=== PATIENT | male | born 1955 | race Caucasian/White ===

== ENCOUNTER 2023-11-05 05:07 | Observation (INO) ==
--- NOTE | 2023-10-06 16:19 | PAT Medication Instructions ---
Medication Instructions Date of Service October 06, 2023 Home Medications amlodipine 10 mg tablet 10 mg PO QAM labetalol 100 mg tablet 100 mg PO BID losartan 100 mg tablet 100 mg PO QAM chlorthalidone 25 mg tablet 25 mg PO QAM DO NOT take the morning of surgery losartan 100 mg tablet 100 mg PO QAM chlorthalidone 25 mg tablet 25 mg PO QAM Take morning of surgery With a small sip of water, OTHERWISE NOTHING TO EAT OR DRINK AFTER MIDNIGHT: amlodipine 10 mg tablet 10 mg PO QAM labetalol 100 mg tablet 100 mg PO BID Take evening before surgery labetalol 100 mg tablet 100 mg PO BID Other Notes If you have any questions please call us at [phone] or [phone] or [phone] or [phone]
--- NOTE | 2023-10-27 11:26 | Anesthesiology Consultation ---
Date of Service October 27, 2023 Assessment & Plan (1) Encounter for pre-operative examination: - awaiting copy of 09/2023 CBC with diff from surgeon's office. - hypokalemia: 2.9-Gilma nurse with PCP office made aware and states she will notify provider today for further review/management. Patient will ultimately need a medical clearance as well. PAT testing to be faxed to PCP. Surgeon's office made aware. - awaiting stress test, holter monitor, and echocardiogram ordered by cardiology. Surgeon's office made aware. - cardiology clearance 10/07/23: "...low to intermediate cardiac risk..." - cardiology office visit 10/06/23: "...requires clearance for left shoulder replacement on March 19, 2023. Reports some palpitations with issues with elevated BP readings; will proceed with regular stress testing to evaluate...Holter monitor scheduled for palpitations and fatigue. Echocardiogram scheduled for murmur...will refer to pulmonary for evaluation for diagnostic sleep study with moderate CHARBEL and lowest oxygen saturation of 72%. Discussed importance of CHARBEL treatment. Renal ultrasound scheduled for uncontrolled hypertension taking 4 medications without control...will add Terazosin 2 mg daily at night for BP control; using clonidine only as needed..." - Outpatient joint assessment: Patient is currently scheduled for inpatient pathway. If re-evaluated and patient/surgeon requests outpatient pathway, patient is not acceptable candidate for outpatient joint program from anesthesia standpoint. Chart Review Chart Review: Pending: Refer to Additional Notes / Consult section and Patient seen in Pre Admission Testing Teaching & Discussion Pre-Anesthesia Teaching/Discussion Notes: Instructed NPO after midnight before surgery, except medications with 15 cc of water. Medication instructions provided according to the PAT guidelines. History Surgery Operation Date: 11/05/23 07:00 Proposed Procedures p Left Total Shoulder Arthroplasty - Navjot Perez MD Height/Weight Height: 5 ft 7 in Weight: 96.2 kg Allergies Allergy/AdvReac Type Severity Reaction Status Date / Time No Known Allergies Allergy Verified 10/02/23 08:16 Medications Home Medications Medication Instructions Recorded Confirmed Last Taken amlodipine 10 mg tablet 10 mg PO QAM 02/10/23 10/02/23 Unknown labetalol 100 mg tablet 100 mg PO BID 02/10/23 10/02/23 Unknown losartan 100 mg tablet 100 mg PO QAM 02/10/23 10/02/23 Unknown chlorthalidone 25 mg tablet 25 mg PO QAM 10/02/23 10/02/23 Unknown Past Medical History Medical History COPD (chronic obstructive pulmonary disease) "Mild" - no inhalers Fatty liver History of COVID-19 08/2021- cough, fatigue > resolved HTN (hypertension) following with [facility] Sleep apnea cpap at night Patient denies h/o stroke, seizures, heart attack, heart failure, DM, blood clots/DVTs or blood transfusions. 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 work accident) Hx of arthroscopy of shoulder left Hx of cholecystectomy Hx of colonoscopy Hx of inguinal hernia repair left Past Anesthesia History No Hx of Anesthesia Complications and No Family Hx of Anesthesia Complications History of PONV No Hx of PONV and No Hx of Motion Sickness Social History Smoking Status: Former smoker tobacco type: cigarettes Do You Dip or Chew Tobacco: No Smoking End Date: 1994 Hx Alcohol Use: Yes Alcohol type: beer alcohol intake frequency: a few times a month Hx Substance Use: No substance use type: does not use Review of Systems Patient denies chest pain, shortness of breath, dyspnea on exertion, reflux, fever, chills, cough, wheezing, or palpitations. Physical Exam Vital Signs Vitals BP 166/80 P 73 TEMP 98.4 SP02 98% on RA RESP 18 Physical Patient resting comfortably in chair in no acute distress, alert and oriented, responding appropriately throughout visit Full cervical extension range of motion without pain TMD 3.5 finger breadths Mallampati Score 2 Dentition: edentulous, full upper and lower dentures Lungs: normal respiratory effort. Good air movement, clear throughout to auscultation, no adventitious breath sounds Cardiac: regular rate and rhythm, no murmurs noted Carotid arteries: negative bruit bilat Lab Results Anesthesia Preop Results Results Anesthesia Widget: Na 139 mmol/L (136-145) 10/27/23 K 2.9 mmol/L (3.5-5.1) L 10/27/23 Cl 101 mmol/L (98-107) 10/27/23 CO2 27 mmol/L (21-32) 10/27/23 BUN 22 mg/dl (6-23) 10/27/23 Creat 1.05 mg/dl (0.6-1.4) 10/27/23 Glucose Level 110 mg/dl (70-99(Fasting)) H 10/27/23 PT 11.4 Seconds (9.0-12.0) 10/27/23 PTT 29 Seconds (21-31) 10/27/23 INR 1.0 (0.9-1.1) 10/27/23 Urine Color Yellow 10/27/23 Urine Appearance Clear (Clear) 10/27/23 Urine pH 7.5 (4.5-7.5) 10/27/23 Urine Specific Labadie 1.014 (1.000-1.030) 10/27/23 Urine Protein Negative (Negative) 10/27/23 Urine Glucose (UA) Negative (Negative) 10/27/23 Urine Ketones Negative (Negative) 10/27/23 Urine Blood Negative (Negative) 10/27/23 Urine Nitrite Negative (Negative) 10/27/23 Urine Bilirubin Negative (Negative) 10/27/23 Urine Urobilinogen Negative (Negative) 10/27/23 Urine Leukocyte Esterase Negative (Negative) 10/27/23 Blood Type O Positive 10/27/23 Antibody Screen NEGATIVE 10/27/23 Testing Electrocardiogram Date: 02/20/23 NSR, rate 67 bpm Chest X-Ray Date: 02/20/23 No acute process.
[2023-11-05] MEDS: LR 60ML/HR IV SCH (05:59)
[2023-11-05] MEDS: LR 15ML/HR IV SCH (05:59)
[2023-11-05] MEDS ORDERED: ceFAZolin 3000MG 3,000 MG/72.5 ML BAG IV SCH (06:00)
[2023-11-05] MEDS ORDERED: BUPIVACAINE 0.5 % 5 MG/1 ML PF 10ML VIAL ONE (06:16)
--- NOTE | 2023-11-05 06:27 | History & Physical Bridge Note ---
Date of Service November 05, 2023 History & Physical Bridge Note I have examined the patient, reviewed the History & Physical and in the interval since the performance of the History & Physical I have noted the following changes of clinical significance: no changes noted
[2023-11-05] MEDS ORDERED: ONDANSETRON INJ 2 MG/ML 2 ML VIAL ONE (06:32)
[2023-11-05] MEDS ORDERED: MIDAZOLAM HCL 1 MG/ML 2ML VIAL ONE (06:32)
[2023-11-05] MEDS ORDERED: fentaNYL citrate PF 100 MCG/2 ML VIAL ONE (06:32)
[2023-11-05] MEDS ORDERED: LIDOCAINE 2% 2 ML VIAL/AMP(20MG/ML) INFIL ONE (06:32)
[2023-11-05] MEDS ORDERED: PROPOFOL IV EMULSION 10 MG/ML 20 ML VIAL IV ONE (06:32)
[2023-11-05] MEDS ORDERED: DEXAMETHASONE SOD INJ 4 MG/ML VIAL ONE (06:32)
[2023-11-05] MEDS ORDERED: ATROPINE SULFATE 0.1 MG/ML 10ML SYR IV PRN (06:33)
[2023-11-05] MEDS ORDERED: ONDANSETRON INJ 2 MG/ML 2 ML VIAL IV PRN ×2 (06:33→10:57)
[2023-11-05] MEDS ORDERED: ePHEDrine sulfate 50 MG/ML AMP IV PRN (06:33)
[2023-11-05] MEDS ORDERED: ROCURONIUM BROMIDE 10 MG/ML 5 ML VIAL IV ONE (06:34)
[2023-11-05] MEDS: TRANEXAMIC ACID 1,000 MG **IV Pre-op IV SCH (06:42)
[2023-11-05] MEDS: ceFAZolin 2000MG 2,000 MG/15 ML SYR IV SCH ×2 (06:56→15:41)
[2023-11-05] MEDS ORDERED: GLYCOPYRROLATE 0.2 MG/ML VIAL ONE (07:32)
[2023-11-05] MEDS ORDERED: PHENYLEPHRINE 100MCG/ML 10ML SYR IV ONE (07:32)
[2023-11-05] MEDS ORDERED: ePHEDrine sulfate 50 MG/5 ML SYR ONE ×2 (07:32→08:09)
[2023-11-05] MEDS: THROMBIN FOR SOLN 20000 UNIT KIT ONE (08:30)
[2023-11-05] MEDS: TRANEXAMIC ACID 1,000 MG **IV Intra-op IV SCH (09:00)
[2023-11-05] MEDS ORDERED: SUGAMMADEX SODIUM 200 MG/2 ML VIAL IV ONE (09:04)
--- NOTE | 2023-11-05 09:36 | Post Operative Brief Note ---
Immediate Post Op Note v1 Date of Surgery November 05, 2023 Pre & Post Diagnosis Operation Date: 11/05/23 07:00 Pre-Op Diagnosis: Left Shoulder Osteoarthritis Post-Op Diagnosis: Left Shoulder Osteoarthritis I identified the patient and participated in the time-out.: Yes Procedure Operation Date: 11/05/23 07:00 Actual Procedures p Left Total Shoulder Arthroplasty, Cemented(Left) - Navjot Perez MD Surgeon Navjot Perez MD Solar Power Installer Psychiatricmilena Estimated Blood Loss 100 Findings Consistent with Post-Op Diagnosis Severe osteoarthritis with marked osteophytes inferior humeral neck inferior glenoid aberrant anatomy based on previous surgery complex case modifier 22 applies. Thin but intact posterior rotator cuff and superior rotator cuff Fluids See anesthesia report Complications None
--- NOTE | 2023-11-05 09:41 | Operative Report ---
Post Operative Report Pre & Post Diagnosis Operation Date: 11/05/23 07:00 Pre-Op Diagnosis: Left Shoulder Osteoarthritis Post-Op Diagnosis: Left Shoulder Osteoarthritis I identified the patient and participated in the time-out.: Yes Procedure Operation Date: 11/05/23 07:00 Actual Procedures p Left Total Shoulder Arthroplasty, Cemented(Left) - Navjot Perez MD Surgeon JESSICA Perez MD Feather Mixer Travis KRAUS Estimated Blood Loss 100 Findings Consistent with Post-Op Diagnosis see operative report Specimens see operative report Drains none Complications none Disposition Accompanied Patient To Recovery: Yes Indications This 68 year old male presented to the office with complaints of persisting left shoulder pain that has been ongoing for years. He has tried conservative care measures without lasting improvement. He elected to proceed with surgical intervention in hopes of improving his pain and function. Preoperative imaging has been obtained. Description of Procedure The patient was administered a regional block and then taken to the operating room where he was given general anesthesia. He was prepped and draped in the usual sterile fashion. Please see Dr. Perez's operative report for specifics of the procedure. I was present for the entire case from initial patient positioning through final closure. Assistance was provided in tissue retraction, hemostasis, trial implant placement, final implant placement, and final wound closure. The patient was taken to the recovery room in satisfactory condition. I attest to the content of the Intraoperative Record and any orders documented therein. Any exceptions are noted below.
--- NOTE | 2023-11-05 09:43 | Operative Report ---
Post Operative Report Pre & Post Diagnosis Operation Date: 11/05/23 07:00 Pre-Op Diagnosis: Left Shoulder Osteoarthritis Post-Op Diagnosis: Left Shoulder Osteoarthritis I identified the patient and participated in the time-out.: Yes Procedure Operation Date: 11/05/23 07:00 Actual Procedures p Left Total Shoulder Arthroplasty, Cemented(Left) - Navjot Perez MD Surgeon Navjot Perez MD Junior Art Director Travis Estimated Blood Loss 100 Findings Consistent with Post-Op Diagnosis Severe osteoarthritis with marked osteophytes off the inferior glenoid and the inferior humeral neck extending anteriorly and posteriorly marked deformation of anatomy previous surgery with marked scarring anteriorly sutures in place throughout the entire anterior exposure of poor tissue planes. Fluids See anesthesia report Specimens None Drains None Complications None Indications Severe pain with marked osteoarthritis and severe deformity left glenohumeral joint. Description of Procedure After the patient was appropriate notified site verify consent provide antibiotics confirmed as being given the arm was prepped and draped use routine fashion. He had marked stiffness he could not internally and actually rotate more than from the belly to -5. Forward flexion was to about 70. Previous incision was utilized and extended slightly proximally. There was marked scarring full-thickness flaps raised. Deltopectoral interval was followed and entered there was no cephalic vein probably removed with previous procedure. The clavipectoral fascia was all scarred it was released as best as possible and then retractor placed subscapularis was then peeled off from the glide of the pectoral fascia and then was released from its most lateral aspect from the biceps groove the biceps was released it was not tenodesed based on previous scarring. Full-thickness flap of the subscapularis was then made and then tedious dissection carried all around the anterior humeral neck and the inferior humeral neck as well as the anterior and inferior glenoid. There was marked osteophytes multiple loose bodies in the joint these were all tediously dissected off the inferior glenoid neck the inferior and anterior glenoid and off the inferior humeral neck. Some these osteophytes were huge and the anatomy was clearly aberrant and could not be expected to be in appropriate positioning so work was performed off the internal side of the capsule and off the edge of the bone to protect the nerves as much as possible. No point in time was a nerve visualized. Once this was done excellent exposure was obtained when humeral neck was cut. Seating hole was then made in the center appropriate reaming carried out. Triphalangeal holes were then placed. The trial fit well. This was then irrigated and then thrombin placed. It was then cemented in the smaller holes in press-fit into the central hole excellent fixation was obtained. After 12 minutes area was then irrigated the some minor revision osteophytes were resected. The wound was irrigated with Betadine. Humerus was then flexed and rotated into the wound and serial broaching and reaming carried up to a size 12 stem with a 135 degree x 12 body. Trial reduction was carried out with a 21 and an 18 head and 21 gave us a little bit more stability posteriorly so it was elected to use that. Sitting always were then placed once the trial limits were removed for the repair of the subscap this had 2 holes with double #2 FiberWire. Wound was irrigated and then the sutures after being placed were then centered so that the stem would the lateral to the sutures providing extra fixation. Once that was done the implant was then impacted into position appropriate anteversion and 30 degrees. Permanent head was then seated in the shoulder reduced. Everything looked good. Rotator interval was then closed with Vicryl to the superior subscap. The subscap was repaired back to the humerus with the sutures that were drilled through the holes and an additional juggernaut 2.9 in size double loaded. This gave excellent fixation to the subscapularis. Rotator interval was closed as noted. Everything looked good. Shoulder could be AB ducted the 30 to 40 degrees then rotated from belly to about 10 degrees with no issues. Forward flexion easily to a 50 to 60 degrees. Wound was irrigated 1 final time and closed with 2-0 plain for the deep and superficial layers and stainless to clips for skin appropriate dressing applied the patient transferred recovery in satisfactory addition he tolerated the procedure well. Summary of implants Global shoulder anchor. Glenoid Premier X-linked PE 52 glenoid size 12 send stem size 12 x 35 degree body 52 x 21 eccentric metal head. EBL 100 cc or less crystalloid per anesthesia no DVT prophylaxis required other than aspirin baby aspirin daily. Family contacted. I attest to the content of the Intraoperative Record and any orders documented therein. Any exceptions are noted below.
[2023-11-05] MEDS: fentaNYL citrate PF 100 MCG/2 ML VIAL IV PRN (09:53)
--- NOTE | 2023-11-05 09:55 | XRay Report ---
SINGLE VIEW LEFT SHOULDER CLINICAL HISTORY: Postoperative examination. FINDINGS: An AP portable view of the left shoulder is compared to study dated 10/27/2023. The skeletal structures are osteopenic. A left shoulder arthroplasty is in near anatomic alignment. No acute frac ture is seen. Productive degenerative change is noted at the acromioclavicular joint. Skin clips, sub cutaneous gas, and soft tissue swelling overlying the left shoulder are expected postsurgical changes . The imaged left lung parenchyma appears clear. IMPRESSION: Expected postoperative findings status post left shoulder orthoplasty. No acute fracture is seen. Electronically signed by: Sawyer King M.D. 11/05/2023 9:53 AM
[2023-11-05] MEDS ORDERED: LORazepam 0.5 MG TAB PO PRN (10:57)
[2023-11-05] MEDS ORDERED: MAGNESIUM HYDROXIDE SUSP 30 ML UDC PO PRN (10:57)
[2023-11-05] MEDS ORDERED: HYDROmorphone INJ 0.5 MG/0.5 ML SYR IV PRN (10:57)
[2023-11-05] MEDS ORDERED: NALOXONE HCL 0.4 MG/1 ML VIAL/CARP IV PRN (10:57)
[2023-11-05] MEDS ORDERED: VANCOMYCIN CONSULT ACTIVE PRN (10:57)
[2023-11-05] MEDS ORDERED: TAMSULOSIN HCL 0.4 MG CAP PO PRN (10:57)
[2023-11-05] MEDS ORDERED: bisacodyL 10 MG SUPP PR PRN (10:57)
[2023-11-05] MEDS ORDERED: diphenhydrAMINE 50 MG/ML VIAL IV PRN (10:57)
[2023-11-05] MEDS ORDERED: METOCLOPRAMIDE HCL INJ 5 MG/ML 2 ML VIAL IV PRN (10:57)
[2023-11-05] MEDS ORDERED: oxyCODONE HCL IR 5 MG TAB (IMMEDIATE RELEASE) PO PRN (10:57)
[2023-11-05] MEDS: VANCOMYCIN HCL 1,500 MG in SODIUM CHLORIDE 0.9% 500 ML IV ONE (11:51)
[2023-11-05] MEDS: SODIUM CHLORIDE 0.9% 1,000 ML IV SCH (11:52)
[2023-11-05] MEDS: KETOROLAC TROMETHAMINE 15 MG/ML VIAL IV SCH (11:52)
--- NOTE | 2023-11-05 13:38 | Anesthesiology Progress Note ---
Date of Service November 05, 2023 Anesthesia Post Procedure Vital Signs Vital Signs: Temp Pulse Pulse Resp BP Pulse Ox O2 Del Method 11/05/23 12:40 36.5 C 75 20 123/68 95 Room Air 11/05/23 11:46 36.5 C 72 16 134/77 94 Room Air 11/05/23 11:15 36.5 C 70 16 125/79 94 Room Air 11/05/23 10:45 Room Air 11/05/23 10:45 36.7 C 71 18 121/75 94 Room Air 11/05/23 10:30 75 20 120/70 94 Room Air 11/05/23 10:15 37.2 C 74 14 109/77 94 Room Air 11/05/23 10:05 80 12 122/81 94 Room Air 11/05/23 09:55 83 18 120/85 94 Oxymask 11/05/23 09:45 76 18 121/73 98 Oxymask 11/05/23 09:39 36 C L 74 20 147/82 H 97 Oxymask 11/05/23 05:48 36.7 C 72 20 172/90 H 96 Room Air O2 Flow Rate 11/05/23 12:40 11/05/23 11:46 11/05/23 11:15 11/05/23 10:45 11/05/23 10:45 11/05/23 10:30 11/05/23 10:15 11/05/23 10:05 11/05/23 09:55 4 11/05/23 09:45 14 11/05/23 09:39 14 11/05/23 05:48 Pain Intensity Left Shoulder: Pain Intensity: 3 Transfer of Care Handoff Completed per policy Notes Mental Status: alert / awake / arousable Patient Amnestic to Procedure: Yes Nausea / Vomiting: adequately controlled Pain: adequately controlled Airway Patency, RR, SpO2: stable & adequate BP & HR: stable & adequate Hydration State: stable & adequate Anesthetic Complications: no major complications apparent and Pt Satisfied with anesthetic care
[2023-11-05] MEDS: ACETAMINOPHEN 500 MG TAB PO SCH (14:25)
--- OUTSIDE RECORDS SUMMARY | 2023-11-05 14:30 | External Medical Summary | Continuity of Care Document ---
Author Name Unknown Organization [facility] [address] [facility] [address] Address [address] [place], [place] [id number] Encounter [facility] [id number] Date(s): 10/27/23 - 10/27/23 [facility] [address] [facility] [facility] [address] [facility] [address] [place] [address] Encounter Diagnosis Osteoarthritis of shoulders, bilateral(Discharge Diagnosis) - 10/27/23 Discharge Disposition: Home or Self Care Attending Physician: NAYANA Robles, Yinka Patel Referring Physician: MD Ana, Navjot Bello Allergies, Adverse Reactions, Alerts No Known Allergies Medications chlorthalidone 25 mg oral tablet TAKE 1 TABLET BY MOUTH ONCE DAILY Start Date: 10/27/23 Status: Ordered labetalol 100 mg oral tablet Start: 09/02/22 10:42:00 EST, 1 tab, PO, bid Start Date: 09/02/22 Status: Ordered losartan 100 mg oral tablet TAKE 1 TABLET BY MOUTH ONCE DAILY Start Date: 09/02/22 Status: Ordered Mental Status 10/27/23 Barriers to Learning one year None evide nt Mandatory Health Literacy Documentation Yes Health Literacy Communication Barriers N ever Primary Language Nepalese Problem List Condition Confirmation Course Effective Dates Status H ealth Status Informant Osteoarthritis of shoulders, bilateral Confirmed Active Osteoarthritis of left shoulder Confirmed Active Diagnosis Diagnosis Type Effective Dates Health Status Clinical Service Informant Osteoarthritis of shoulders, bilateral Discharge Diagnosis 10/27/23 Vital Signs Most recent to oldest [Reference Range]: 1 Height 170 cm (10/27/23 9:32 AM) Patient Weight 95 kg (10/27/23 9:32 AM) Body Mass Index 32.87 kg/m2 (10/27/23 9:32 AM) Temperature [36.5-37.9 DegC] 36.6 DegC (10/27/23 9:32 AM) Heart Rate 76 bpm (10/27/23 9:32 AM) Blood Pressure 190/92mmHg (10/27/23 9:32 AM) Cuff Pulse Pressure 98 mmHg (10/27/23 9:32 AM) Social History Social History Type Response Smoking Status Never smoked cigaret belem Sex Pre-OP H & P * NAYANA Melissa Jennifer R: PERFORM, MODIFY, MODIFY Event Display: Pre-OP H & P Authored Date: [id number] Name:ZULLY KHAN Patient Number:[id number] :1955 Date of Service:10/27/2023 Chief Complaint pre op L) TSA History of Present Illness 67-year-old [id number] male who is a known patient of Dr. Perez's. He is here for his preoperative history and physical examination for a left total shoulder arthroplasty on 11/05/23with Dr. Perez. He explains that he has had bilateral shoulderpainfor over 20 years. He states the leftshoulder has been progressively gotten worse over the past year. He deniesany fall or injury that provoked the symptoms. He explains that he has pain and limitations withdoing functional activities around the house. He complains of difficulty reaching into cabinetsand with getting dressed. He statesthe painis limiting his ability to doyard work and thingshe enjoys. He states he has lost strength in bilateral upper extremities. He denies any paresthesiain his upper extremities. He has hgkdrofmr-bmv-tassobn analgesics primarily Tylenol due tohistory of hypertension. He states he does have a history of hypertension and this seems to be elevated whenever he is at doctor offices. He states his blood pressure is elevated now. He deniesany vision changes, headaches, weakness or confusion. He denies any chest pain or shortness of breath. He does have the history of doing exercises on his own. He states he wasnot able to tolerate physical therapy because of worsening pain. He had x-rays as well as an MRI. These both revealed advanced osteoarthritisof the glenohumeral jointof the left shoulder. No definitive tears wereseen of the rotator cuff. Due to the progression of symptoms after a lengthy course of conservative failedtreatment patient will be taken to the OR for a left total shoulder arthroplasty. He states he has a history of having COVID and was told that he could possibly have COPD. He hasnever had aformal work-up of this. He denies any shortness of breath or coughingwith production at this time. Patient deniesany history ofMI, pulmonary disease,DVT, PE,latex allergyor history of MRSA infections. He denies any history of problems with anesthesia. Review of Systems REVIEW OF SYSTEMS: Constitutional: Denies fevers,chills, night sweats,unexpected weight gain or weight loss Eyes Denies any loss of vision or blurred vision, drainage or discharge ENT:Denies any loss of hearing, ear pain, nasal congestion or nasaldrainage, sore throat Cardiac: Denies chest pain, palpitations,slow heart rate, fast heart ratedizziness Pulmonary: Denies any coughing, shortness of breath, wheezing Gastrointestinal: Denies any stomach pain, diarrhea, vomiting, blood in stool Genitourinary: Denies any blood urine burning when urinating, frequency, infections or kidney stones Musculoskeletal: Refer to HPI Integumentary: Denies any rash, dry skin or skin sores orwounds Neurologic: Denies any confusion, paresthesia, headaches Psychiatric: Denies any anxiety, depression or thoughts of self harm or anyone else. Physical Exam Vitals & Measurements T:36.6C HR:76(Monitored) BP:190/92 SpO2:99% HT:170cm WT:95.000kg(Dosing) WT:95kg BMI:32.87 BMI:32.87 kg/m2 General:Pt is alert and oriented x3.No acute distress. Well-dressed, well-nourished . HEENT: Head: Atraumatic, normocephalic. Eyes: Extraocular movements intact. Pupils equal, round, and reactive to light. Sclerae are normal. Ears: Hearing is grossly normal. Nose: Nares are patent bilaterally. Throat: Oropharynx clear. Mucous membranes moist.Upper and lower dentures. Uvula midline.Neg for erythema Neck: Supple. No lymphadenopathy. Nontender to palpation. Full range of motion. Lungs: Clear to auscultation bilaterally. No adventitious sounds. No accessory muscle use. Heart: Regular rate and rhythm. Normal S1, S2. No murmurs, rubs, or gallops appreciated. Abdomen: Soft, nontender, nondistended. Normal bowel sounds heard in all 4 quadrants. Musculoskeletal:Skin is normal in color and temperatureover the left shoulder. Negative for any abrasions or wounds. He has palpable tenderness over the anteriorshoulder bilaterally. His range of motion is restrictedbilaterally more pronounced on the left. He is able to get to shoulder flexion to approximately 85 degreeson the [id number] theright. Abduction is limited bilaterally to approximately 60 degreesinternal rotation is limited bilaterally to side of the legexternal [id number] degrees bilaterally. Hisstrengthis 4 -/5bilateral upper extremities. He has full elbowand wrist range of motion. He is able to fully flex and extend fingers. He hasfull pronation and supination. Integumentary:normal in color neg for abrasion or rash Neuro: Cranial nerves II-XII grossly intact Psychiatric:Good eye contact, normal mood and affect, cooperative during exam, nonsuicidal Diagnostic Results X ray and MRI [id number]-[id number] at the glenohumeral jointwith subchondral sclerosisand large osteophytes. Negative for any definitive rotator cuff tears in the MRI. Assessment/Plan 1.Osteoarthritis of shoulders, bilateral The patient is scheduled for a lefttotal shoulder arthroplasty on11/05/2023. Patient will be admitted to [facility] for observation and most likely will be discharged if medically stable by 9 am the next day. Risks and complications of the procedure were explained to the patient and include, but are not limited to, infection, pain, bleeding, scarring, nerve and blood vesseldamage, wound problems, weakness, stiffness, incomplete relief of symptoms, hardware failure, fracture, malunion, nonunion, tendon, ligament injury, blood clots, embolisms, heart attack, stroke, and . All questions were answered and informed consent was obtained.He is seeing going to [facility] later todayand was given orders for preoperative laboratory work. He had an EKG and CXR performed in 02/2023. He hasbeen cleared by cardiology. We are currently waiting for medical clearance. His family physician was notified of his elevated blood pressure today. Also of his new BMP performed today, currently pending. We discussed postoperative pain control. We discussed risks and benefits treating with a narcotic. We discussed risks of addiction, overdose, etc. We discussed other measures to control pain including OTC analgesics, ice, exercise and distractions.[facility]. We reviewed [facility] surgical handbook and this was given to the patient today. They were instructed on use of the CHG cloths andthey will be provided at PAT clinic today, Patient is aware to contact the surgical center/hospital for time to arrive for surgery. They were provided date, telephone number, and time to contact. They are aware to be NPO the morning of his surgery. He will be instructed on medication to take the morning of surgery with a small sip of water by [facility]. Postoperative course was discussed. Upon discharge patient will have outpatient PT here in our office, directly after discharge from the hospital. He will then continue outpatient physical therapy closer to home. Patient was advised need of prophylacticantibiotics prior to all dental procedures including cleanings/gum care. Instructed to contact our office prior to procedure and we will prescribe the antibiotic. He will be on aspirin for DVT prophylaxis x 6 weeks s/p surgery. Patient is scheduled for postoperative appointment.All questions were answered.They know to call withany further problems, questions, or concerns. This chart was completed utilizing [employer] voice recognition software. Grammatical errors, random word insertions, pronoun errors, and in complete sentences are an occasional consequence of the system. Any questions or concerns about the content, text, or information contained within the body of this dictation should be addressed directly to the provider for clarification. 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 daily Chlorthalidone 12.5 mg daily due to recent hypokalemia, if that returns to normal he may be placed back on his 25 mg daily Allergies NKA Social History History of tobacco abuse, quit in 1994. Denies any current tobacco use. Denies any recreationaldrug use. He does drink approximately 2 beers per week. Lives with his . Family History Mother is history of heart disease and hypertensionand Alzheimer's. She is . Father current at age 52 from suicide. No known medical problems. Electronic Signature on File Electronically Reviewed/Signed by: Kimmy Melissa PA-C Author Signature Dt/Tm:10/27/2023 02:08PM Division of Sports Medicine Electronically Reviewed/Signed by: MD Lana Mandujano Signature Dt/Tm: 10/27/2023 02:15 PM [employer] for Clinical Affairs, [facility] Professor in Orthopaedics Tube Cutter, [facility] Ortho Outpt Note * Yuli Kumar: MODIFY, PERFORM Event Display: Ortho Outpt Note Authored Date: [id number] Name:ZULLY KHAN Patient Number:[id number] :1955 Date of Service:10/27/2023 CHIEF COMPLAINT: Left TSA surgical consent HPI: Alcira Bernal presents today forsurgical consent for left TSA. He complains of bilateral shoulder pain and decreased mobility. He is currently scheduled for surgeryon 11/05/2023. PHYSICAL EXAM: Focus on the left upper extremity (shoulder): Sensation intact to the median, radial, ulnar, axillary, and subscapular nerve distributions. Shoulder ROM: Forward flexion 50 / abduction 50 / rotation belly to - 10 DIAGNOSTIC REVIEW: I obtained and personally interpreted 4 views of the left shoulder which shows extensive osteoarthritis of the shoulder. Large osteophytes of the inferior humerus andglenoid. Marked joint space narrowing. No superior migration ofthehumeral head IMPRESSION: End-stage left shoulder OA PLAN: Reviewed risks, benefits, procedure, and rehabilitation for left shoulder total shoulder arthroplasty. Surgical consent obtained. H&P completed after evaluation today Follow-up as scheduled for surgery ATTESTATION: Yuli Harris, scribing for and in the presence of, Navjot Perez, on this date,10/27/2023 09:41:29. Electronic Signature on File Electronically Reviewed/Signed by: Yuli Kumar Author Signature Dt/Tm:10/27/2023 09:59 AM Electronically Reviewed/Signed by: MD Lana Mandujano Signature Dt/Tm: 10/27/2023 10:16 AM [employer] for Clinical Affairs, [facility] Professor in Orthopaedics Tube Cutter, [facility]
--- NOTE | 2023-11-05 17:26 | Orthopedic Progress Note ---
Date of Service November 05, 2023 Assessment & Plan Admission and Anticipated Discharge Date Admission Date: November 05, 2023 Orthopedic Progress Note Postop check status post left total shoulder replacement. He is sitting up in his chair eating dinner. He states his pain is well-managed. He notes that he has full active wrist and hand function. He can feel sensation in the axillary nerve distribution he can fire the posterior deltoid well. Wound dressing clean dry and intact. Placed his thumb in the loop sling so that the overall support from the sling is improved. Postop x-rays look excellent. Advised him concerning his condition at this point I will discharge to outpatient PT tomorrow. Were trying to verify his appointment time. I will call that to the floor.
[2023-11-05] MEDS: ASCORBIC ACID 500 MG TAB PO SCH (17:30)
[2023-11-05] MEDS: FERROUS GLUCONATE 324 MG TAB PO SCH (17:30)
[2023-11-05] MEDS: ALUMINUM/MAGNESIUM SUSP 30 ML UDC PO PRN (20:08)
[2023-11-05] MEDS: LABETALOL HCL 100 MG TAB PO SCH (20:09)
[2023-11-05] MEDS: SENNA 8.6 MG TAB PO SCH (20:09)
[2023-11-05] MEDS: DOCUSATE SODIUM 100 MG CAP PO SCH (20:09)
--- NOTE | 2023-11-06 05:32 | Discharge Summary ---
Date of Service November 06, 2023 Admission HPI Per Admitting Provider djd l shoulder Principal Diagnosis s/p l TSA Discharge Data Allergies Allergy/AdvReac Type Severity Reaction Status Date / Time No Known Allergies Allergy Verified 11/05/23 05:39 Vaccinations none Consultations none Procedures Performed Operation Date: 11/05/23 07:00 Actual Procedures p Left Total Shoulder Arthroplasty, Cemented(Left) - Navjot Perez MD Ordered Studies 11/05/23 05:00 US - OR guided needle placemen Routine Hospital Course (1) Status post total replacement of left shoulder: DIET: * Resume previous diet. MEDICATIONS: * Please take your prescriptions as instructed at your pre-op appointment and/or see medication discharge instructions listed above. * If concerns develop, call your physician's office at . SPECIAL CARE INSTRUCTIONS: * Ice/Elevate as instructed. * Keep dressing clean, dry, intact. * Your surgical extremity may be discolored due to prepping agents used on the skin. A bluish-green tint is a normal variant and should not cause alarm. Call your doctor at [phone] if: * Temperature above 101 degrees * Pain not relieved by pain medicine ordered * There is increased drainage or redness from any incision * You have any unanswered questions, problems or concerns. FOLLOW UP VISIT: * If not already scheduled, please call the office at to schedule a follow-up appointment. Plan home/outpatient PT Total Time Total Time Spent Total Time Spent (In Minutes): 10 Discharge Plan Discharge Items Reason For Visit: Left Shoulder Osteoarthritis Discharge Diagnosis: Left shoulder s/p total shoulder replacement Condition on Discharge: Good Activity: Per Instructions section Lifting: Wait until after follow-up appointment Bathing: Keep incision dry Sexual Activity: Wait until after follow-up appointment Exercise/Sports: Wait until after follow-up appointment Driving/Machine Use: no driving x 4 weeks Weightbearing Comment: nwb l shoulder Non-emergency contact: Surgeon Call non-emergency contact if: you have any medication questions, your pain is not controlled, your temperature is above 101, your wound has increased redness, your wound has increased drainage and your wound pain has increased Follow-up/Referrals: Mojgan Long NP [Primary Care Provider] - Addtl Attending Provider Instructions: DIET: * Resume previous diet. MEDICATIONS: * Please take your prescriptions as instructed at your pre-op appointment and/or see medication discharge instructions listed above. * If concerns develop, call your physician's office at . SPECIAL CARE INSTRUCTIONS: * Ice/Elevate as instructed. * Keep dressing clean, dry, intact. * Your surgical extremity may be discolored due to prepping agents used on the skin. A bluish-green tint is a normal variant and should not cause alarm. Call your doctor at [phone] if: * Temperature above 101 degrees * Pain not relieved by pain medicine ordered * There is increased drainage or redness from any incision * You have any unanswered questions, problems or concerns. FOLLOW UP VISIT: * If not already scheduled, please call the office at to schedule a follow-up appointment. Studies:: bone pathology Stand-Alone Forms: My [facility] Medications and DC Order Prescriptions: No Action amlodipine 10 mg Tablet 10 mg PO QAM labetalol 100 mg Tablet 100 mg PO BID losartan 100 mg Tablet 100 mg PO QAM chlorthalidone 25 mg Tablet 25 mg PO QAM lorazepam [Ativan] 0.5 mg Tablet 0.5 mg PO DAILY PRN (Reason: Anxiety) Admission Data Admit Date/Time: 11/05/23 09:49 Attending Provider: Navjot Perez Admit Provider: Navjot Perez Primary Care Provider: Mojgan Long
--- NOTE | 2023-11-06 06:42 | Orthopedic Progress Note ---
Date of Service November 06, 2023 Assessment & Plan Admission and Anticipated Discharge Date Admission Date: November 05, 2023 Orthopedic Progress Note Postop day #1 status post hybrid left total shoulder replacement with cemented glenoid and press-fit humerus. He notes that he is doing well his pain is well- managed. He is sitting up in bed. He is already been up walking around. He is able to void now. Did require straight cath x 1 last night. Vital signs are stable he is afebrile. Neurovascular check for median radial and ulnar suprascapular and axillary nerves are intact. He has good axillary nerve distribution sensation and fires his deltoid muscle with resisted abduction. Wound dressing clean dry and intact. Assessment overall doing well plan is to discharge to home today. Will be discharged and sent directly to outpatient PT unit with appropriate shoulder specialized rehab. Already discussed with the physical therapist. Will have his dressing change there. Follow-up with me in 2 weeks.
[2023-11-06] MEDS: dexAMETHasone 10 MG in SYRINGE 0 ML IV SCH (07:11)
[2023-11-06] MEDS: ASPIRIN 81 MG ECTAB PO SCH (07:12)
[2023-11-06] MEDS: amLODIPine BESYLATE 5 MG TAB PO SCH (07:12)
[2023-11-06] MEDS: MULTIVITAMIN TAB PO SCH (07:12)
[2023-11-06] MEDS: CHLORTHALIDONE 25 MG TAB PO SCH (07:12)
[2023-11-06] MEDS: LOSARTAN POTASSIUM 50 MG TAB PO SCH (07:13)
[2023-11-06 07:15] LABS: Basophils # (auto) 0.01 K/uL (0.00-0.20); Basophils % (auto) 0.1 %; Eosinophils # (auto) 0.01 K/uL (0.00-0.50); Eosinophils % (auto) 0.1 %; Hematocrit (blood only) 33.8 % (42.0-52.0); Hemoglobin 12.1 g/dl (14.0-18.0); Immature Granulocytes # (auto) 0.09 K/uL (0.01-0.20); Immature Granulocytes % (auto) 0.6 %; Lymphocytes # (auto) 0.97 K/uL (1.20-3.40); Lymphocytes % (auto) 6.5 %; Mean Corpuscular Hemoglobin 31.7 pg (25.0-34.0); Mean Corpuscular Hgb Conc 35.8 g/dL (32.0-36.0); Mean Corpuscular Volume 88.5 fL (80.0-100.0); Mean Platelet Volume 10.4 fL (9.4-12.4); Monocytes # (auto) 1.48 K/uL (0.11-0.59); Monocytes % (auto) 9.9 %; Neutrophils % (auto) 82.8 %; Platelet Count 202 K/uL (130-400); RDW Coefficient of Variation 12.4 % (11.5-14.5); Red Blood Count 3.82 M/uL (4.70-6.10); White Blood Count 14.96 K/ul (4.8-10.8)
[2023-11-06 07:51] LABS: BUN Creatinine Ratio 21.9 (10-20); Calcium 8.5 mg/dl (8.6-10.3); Creatinine Clr Calc Pharmacy 51.7 ml/min; Est GFR (African American) 55.7 ml/min; Potassium 3.3 mmol/L (3.5-5.1)
--- NOTE | 2023-11-06 09:40 | Orthopedic Progress Note ---
Date of Service November 06, 2023 Assessment & Plan (1) Status post total replacement of left shoulder: Plan: The patient was educated regarding today's findings. Conservative care measures were discussed. He will be discharged from here to the office and have his dressing changed there. He will start PT in the office as well. Prescription for Percocet was sent to his pharmacy. He has a PT appointment this morning at 1030. Written discharge instructions were provided. Use the sling at all times. Ice and elevate frequently to reduce pain and swelling. Call with any other concerns. Admission and Anticipated Discharge Date Admission Date: November 05, 2023 Subjective This 68 year old male is see today in his room. He is sitting at bedside and has finished his breakfast. He states he feels well. He has already been walking in the hallway. He denies any chest pain, shortness of breath, nausea, vomiting, or abdominal pain. He states his hand is awake and feels fine. He is waiting for discharge. No other complaints. Physical Exam Physical Exam: General: Well-developed, well-nourished, elderly male, in no acute distress. Sitting in a bedside chair. Alert and oriented. Skin: Warm and dry with good turgor. No rashes. No ecchymosis or edema present in the left arm. Postsurgical dressing is in place on his left shoulder. It was not removed. Musculoskeletal: The patient has intact motor function of his left fingers and wrist. Elbow and shoulder motion was not attempted given his surgery yesterday. Neurologic: Gross sensation is intact across the left hand and wrist as well as the left upper arm and shoulder, by soft touch. Peripheral pulses are 2+. Results & Data Vital Signs (Past 12 Hours) Vital Signs Temp Pulse Pulse Resp BP Pulse Ox O2 Del Method 11/06/23 07:49 36.6 C 75 72 18 137/71 96 11/06/23 07:00 36.6 C 72 18 137/71 96 Room Air 11/06/23 03:56 36.7 C 74 18 128/74 95 CPAP 11/06/23 00:11 36.6 C 79 18 130/78 95 Room Air Laboratory Results CBC obtained today shows a white count of 14.96. H&H of 12.1 and 33.8. Platelets 202,000. Sodium 137, potassium 3.3, chloride 102, anion gap of 9. BUN of 32 and creatinine 1.46. Glucose this morning is 153.
== END 2023-11-06 09:30 | disposition home or self-care (01) ==
LOC: 3E 05:07 → ASU 05:07
DX: Z86.16 Personal history of COVID-19; M19.011 Primary osteoarthritis, right shoulder; M25.712 Osteophyte, left shoulder; J44.9 Chronic obstructive pulmonary disease, unspecified; Z89.022 Acquired absence of left finger(s); Z79.899 Other long term (current) drug therapy; I10 Essential (primary) hypertension; Z87.891 Personal history of nicotine dependence; Z98.890 Other specified postprocedural states; M19.012 Primary osteoarthritis, left shoulder; G47.33 Obstructive sleep apnea (adult) (pediatric); M65.812 Other synovitis and tenosynovitis, left shoulder

== ENCOUNTER 2024-08-25 05:00 | Observation (INO) ==
--- NOTE | 2024-06-30 11:10 | PAT Medication Instructions ---
Medication Instructions Date of Service June 30, 2024 Home Medications amlodipine 10 mg tablet 10 mg PO QAM labetalol 100 mg tablet 100 mg PO HS losartan 100 mg tablet 100 mg PO QAM chlorthalidone 25 mg tablet 12.5 mg PO QAM spironolactone 25 mg tablet 25 mg PO QAM DO NOT take the morning of surgery losartan 100 mg tablet 100 mg PO QAM chlorthalidone 25 mg tablet 12.5 mg PO QAM spironolactone 25 mg tablet 25 mg PO QAM Take morning of surgery With a small sip of water, OTHERWISE NOTHING TO EAT OR DRINK AFTER MIDNIGHT: amlodipine 10 mg tablet 10 mg PO QAM Take evening before surgery labetalol 100 mg tablet 100 mg PO HS Other Notes If you have any questions please call us at [phone] or [phone] or [phone] or [phone]
--- NOTE | 2024-07-05 10:09 | Anesthesiology Consultation ---
Date of Service July 05, 2024 Assessment & Plan (1) Encounter for pre-operative examination: - Infectious disease screening: Per assessment on 07/05/24- No known recent infectious disease contacts or current infectious disease symptoms. - Outpatient joint assessment: Pt currently scheduled for inpatient pathway. Per [facility] anesthesia consult 10/2023 (prior to Left TSA done at [facility] 11/05/23), patient deemed not a candidate for outpatient joint pathway. Patient not recommended candidate for outpatient joint pathway for upcoming surgery based on current available information. - S/P Left TSA (11/05/23): Grade 1 view, MAC#4, ETT 7.5 + regional at [facility] - Pending: * Awaiting surgeon-ordered PCP preop evaluation (Mojgan Long NP/[facility], appt 07/06). * Awaiting cardiology preop evaluation ([facility], appt 07/28) and preop Echo (08/17). Chart Review Chart Review: Patient seen in Pre Admission Testing Teaching & Discussion .bpo History Surgery Operation Date: 08/25/24 07:00 Proposed Procedures p Right Total Shoulder Arthroplasty - Navjot Perez MD Height/Weight Height: 5 ft 7 in Weight: 93.5 kg Allergies Allergy/AdvReac Type Severity Reaction Status Date / Time No Known Allergies Allergy Verified 06/29/24 10:20 Medications Home Medications Medication Instructions Recorded Confirmed Last Taken amlodipine 10 mg tablet 10 mg PO QAM 02/10/23 06/29/24 11/05/23 04:15 labetalol 100 mg tablet 100 mg PO 02/10/23 06/29/24 11/05/23 04:15 losartan 100 mg tablet 100 mg PO QAM 02/10/23 06/29/24 11/04/23 08:00 chlorthalidone 25 mg tablet 12.5 mg PO QAM 10/02/23 06/29/24 11/04/23 08:00 spironolactone 25 mg tablet 25 mg PO QAM 06/29/24 06/29/24 Unknown Past Medical History Medical History Aortic stenosis Echo 03/2023: Mild aortic stenosis (BRYANT 2.3 cm; AV velocity 2.1 m/s; MG 10 mmHg) COPD (chronic obstructive pulmonary disease) "Mild" - no inhalers Fatty liver History of COVID-19 08/2021- cough, fatigue > resolved spring 2023, resolved HTN (hypertension) Follows with [facility] Obesity Sleep apnea CPAP (compliant) Exercise / Class Metabolic Activity II 4-5 Yardwork/Stairs/Walk up hill (one FS: No CP, no SOB) Past Family History Family History Other No family history of adverse response to anesthesia Past Surgical History Surgical History 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 work accident) History of anesthesia reaction 10/2023, unable to urinate following his shoulder surgery, "had to be catheterized" History of total replacement of left shoulder joint Left TSA (11/05/23): Grade 1 view, MAC#4, ETT 7.5 + regional at [facility] Hx of arthroscopy of shoulder left Hx of cholecystectomy Hx of colonoscopy Hx of inguinal hernia repair left Past Anesthesia History No Family Hx of Anesthesia Complications and Other (10/2023, unable to urinate following his shoulder surgery, "had to be catheterized") History of PONV No Hx of PONV and No Hx of Motion Sickness Social History Smoking Status: Former smoker tobacco type: cigarettes Do You Dip or Chew Tobacco: No Smoking End Date: Quit 1994 Hx Alcohol Use: Yes Alcohol type: beer alcohol intake frequency: holidays/special occasions only Hx Substance Use: No substance use type: does not use Review of Systems Patient denies chest pain, shortness of breath, dyspnea on exertion, fever, chills, cough, wheezing. Physical Exam Vital Signs BP 149/88 P 79 TEMP 98.1 SP02 98%RA RESP 18 Physical Decreased cervical extension range of motion. Full TMJ range of motion. TMD > 3.5 finger breaths Mallampati Score II Dentition: upper/lower full dentures Lungs: clear throughout to auscultation Cardiac: regular rate and rhythm, no murmurs noted Spine: normal Carotid arteries: negative bruit Extremities: no LE edema, left index finger partial amputation Lab Results Anesthesia Preop Results Results Anesthesia Widget: WBC 6.97 K/ul (4.8-10.8) 07/05/24 Hgb 15.1 g/dl (14.0-18.0) 07/05/24 Hct 43.5 % (42.0-52.0) 07/05/24 Plt 233 K/uL (130-400) 07/05/24 Na 138 mmol/L (136-145) 07/05/24 K 3.6 mmol/L (3.5-5.1) 07/05/24 Cl 103 mmol/L (98-107) 07/05/24 CO2 27 mmol/L (21-32) 07/05/24 BUN 22 mg/dl (6-23) 07/05/24 Creat 1.23 mg/dl (0.6-1.4) 07/05/24 Glucose Level 113 mg/dl (70-99(Fasting)) H 07/05/24 PT 11.6 Seconds (9.0-12.0) 07/05/24 PTT 27 Seconds (21-31) 07/05/24 INR 1.1 (0.9-1.1) 07/05/24 HA1c 6.6 % (4.5-5.6) H 07/05/24 Urine Color Yellow 07/05/24 Urine Appearance Clear (Clear) 07/05/24 Urine pH 7.5 (4.5-7.5) 07/05/24 Urine Specific [place] 1.007 (1.000-1.030) 07/05/24 Urine Protein Negative (Negative) 07/05/24 Urine Glucose (UA) Negative (Negative) 07/05/24 Urine Ketones Negative (Negative) 07/05/24 Urine Blood Negative (Negative) 07/05/24 Urine Nitrite Negative (Negative) 07/05/24 Urine Bilirubin Negative (Negative) 07/05/24 Urine Urobilinogen Negative (Negative) 07/05/24 Urine Leukocyte Esterase Negative (Negative) 07/05/24 Blood Type O Positive 07/05/24 Antibody Screen NEGATIVE 07/05/24 Testing Electrocardiogram Date: 07/05/24 SR with occasional PVCs at 73bpm. "Otherwise normal ECG" Chest X-Ray Date: 07/05/24 FINDINGS: The cardiac silhouette measures within normal limits. The hilar and mediastinal structures appear unremarkable. The lungs are clear. The osseous structures appear grossly intact. Left shoulder arthroplasty. Uncovertebral degenerative changes in cervical spine. Degenerative changes of the thoracic spine. Elevation of the right hemidiaphragm. IMPRESSION: No evidence of acute cardiopulmonary disease, communicable disease or tuberculosis. No significant interval change. Stress Test Date: 03/13/23 Type: exercise Negative for the development of angina or ischemic ST changes. MPHR 93%. 10.1 METS.
[2024-08-25] MEDS: LR 60ML/HR IV SCH (05:59)
[2024-08-25] MEDS: LACTATED RINGER'S 1,000 ML IV SCH (05:59)
[2024-08-25] MEDS ORDERED: BUPIVACAINE 0.5 % 5 MG/1 ML PF 10ML VIAL ONE (06:21)
--- NOTE | 2024-08-25 06:29 | History & Physical Bridge Note ---
Date of Service August 25, 2024 History & Physical Bridge Note I have examined the patient, reviewed the History & Physical and in the interval since the performance of the History & Physical I have noted the following changes of clinical significance: consent and site verified.no changes noted
[2024-08-25] MEDS ORDERED: ONDANSETRON INJ 2 MG/ML 2 ML VIAL IV PRN ×2 (06:36→11:09)
[2024-08-25] MEDS ORDERED: PROPOFOL IV EMULSION 10 MG/ML 20 ML VIAL IV ONE ×2 (06:36→09:41)
[2024-08-25] MEDS ORDERED: ePHEDrine sulfate 50 MG/ML AMP IV PRN (06:36)
[2024-08-25] MEDS ORDERED: fentaNYL citrate PF 100 MCG/2 ML VIAL IV PRN (06:36)
[2024-08-25] MEDS ORDERED: ATROPINE SULFATE 0.1 MG/ML 10ML SYR IV PRN (06:36)
[2024-08-25] MEDS ORDERED: LIDOCAINE 2% 2 ML VIAL/AMP(20MG/ML) INFIL ONE (06:36)
[2024-08-25] MEDS ORDERED: fentaNYL citrate PF 100 MCG/2 ML VIAL ONE (06:37)
[2024-08-25] MEDS ORDERED: ROCURONIUM BROMIDE 10 MG/ML 5 ML VIAL IV ONE ×2 (06:37→08:22)
[2024-08-25] MEDS ORDERED: MIDAZOLAM HCL 1 MG/ML 2ML VIAL ONE (06:37)
[2024-08-25] MEDS: TRANEXAMIC ACID 1,000 MG **IV Pre-op IV SCH (06:43)
[2024-08-25] MEDS: ceFAZolin 2000MG 2,000 MG/15 ML SYR IV SCH ×2 (06:59→16:39)
[2024-08-25] MEDS ORDERED: ePHEDrine sulfate 50 MG/ML AMP ONE (07:38)
[2024-08-25] MEDS ORDERED: PHENYLEPHRINE HCL 10 MG/ML VIAL ONE (07:40)
[2024-08-25] MEDS: THROMBIN FOR SOLN 20000 UNIT KIT ONE (08:48)
[2024-08-25] MEDS ORDERED: SUGAMMADEX SODIUM 200 MG/2 ML VIAL IV ONE (08:56)
[2024-08-25] MEDS: TRANEXAMIC ACID 1,000 MG **IV Intra-op IV SCH (09:00)
--- NOTE | 2024-08-25 09:20 | Post Operative Brief Note ---
Immediate Post Op Note Date of Surgery August 25, 2024 Pre & Post Diagnosis Operation Date: 08/25/24 07:00 <No data on this case meets the specified criteria> Osteoarthritis right shoulder pre and postop diagnosis same I identified the patient and participated in the time-out.: Yes Procedure Operation Date: 08/25/24 07:00 <No data on this case meets the specified criteria> Hybrid total shoulder replacement cemented glenoid Surgeon Navjot Perez MD Sales Team Leader Nicol/Travis Estimated Blood Loss 75 Findings Consistent with Post-Op Diagnosis Severe osteoarthritis multiple small loose bodies Fluids See anesthesia report Drains Browning Catheter Complications None
--- NOTE | 2024-08-25 09:24 | Operative Report ---
Post Operative Report Pre & Post Diagnosis Operation Date: 08/25/24 07:00 <No data on this case meets the specified criteria> Osteoarthritis right shoulder pre and postop diagnosis same I identified the patient and participated in the time-out.: Yes Procedure Operation Date: 08/25/24 07:00 <No data on this case meets the specified criteria> Hybrid total shoulder replacement cemented glenoid Surgeon Navjot Perez MD Circular Knitter Helper Nicol/Travis Estimated Blood Loss 75 Findings Consistent with Post-Op Diagnosis Severe osteoarthritis multiple small loose bodies Fluids See anesthesia report Specimens Bone pathology Drains None Complications None Indications Intractable pain x-rays revealing end-stage disease right shoulder Description of Procedure After the patient was appropriate endophyte site verified consent verified exam under anesthesia revealed no major internal rotation contracture was able to externally rotate with the arm at the side to about 15 degrees. Forward flexion was at about 110 abduction about the same. He was then carefully placed a beachchair position right upper extremity prepped and draped in his routine fashion. Deltopectoral interval was then opened after the skin incision was made. Cephalic vein was retracted with the deltoid there was marked adhesions of the deltoid to the humerus this was all released exposure was then obtained. The clavipectoral fascia was then opened and retracted the conjoined tendon. Subscapularis was peeled off completely. This of the biceps was released. There was multiple loose bodies in the biceps sheath this was all removed. Once the subscap was tagged was released completely were marked osteophytes around the margin of the glenoid once exposure was complete these were all resected. Serial reaming was then carried up to get rid of the some asymmetry to the glenoid surface and a 52 glenoid after seating holes were made was impacted into position it fit well. Once this was done it was irrigated with Betadine Pulsavac and the permanent cemented into position this was a global anchor peg glenoid 52 size. After 12 minutes everything looked good wound was irrigated the humerus was delivered into the wound and then serial reaming carried up to a 12 stem trial reduction with a 21 head was excellent. Was eccentric. Trial were removed. Wound was irrigated and soaked in Betadine and then the sutures placed through the tuberosity and then the permanent stem impacted into position with appropriate 30 degrees of retroversion. Excellent fixation was obtained. The permanent head was then seated and the shoulder reduced it was stable in all planes. There was good tension on the muscle. Once this was done it was irrigated and then the wound was closed repairing the subscapularis to the superior rotator cuff as well as to the bone through the holes that were placed around the implant as well this provided a good closure of the subscapularis. Some small additional suturing was then performed over as some buttress to this. This was irrigated 1 final time the deltopectoral interval closed with 2-0 plain and stainless to clips appropriate dressing and sling were applied the patient transferred recovery in satisfactory descending tolerated procedure well. was contacted. Summary of implants size 52 glenoid size 12 stem size 12 x 35 degree body 52 x 21 eccentric head these are all the global unite anatomic shoulder replacement. The glenoid was the anchor peg glenoid. EBL 75 cc crystalloid per anesthesia bone pathology pending x-ray pending in recovery room I attest to the content of the Intraoperative Record and any orders documented therein. Any exceptions are noted below.
--- NOTE | 2024-08-25 09:30 | Orthopedic Progress Note ---
Date of Service August 25, 2024 Orthopedic Progress Note Patient underwent right total shoulder replacement hybrid tolerated well. X-ray pending. Block is working well. Family contacted. Will leave Browning in place until he leaves the recovery room at his request.
--- NOTE | 2024-08-25 09:31 | Discharge Summary ---
Date of Service August 26, 2024 Admission HPI Per Admitting Provider Chronic right shoulder pain here for total shoulder replacement right upper extremity Principal Diagnosis Osteoarthritis right shoulder Discharge Data Allergies Allergy/AdvReac Type Severity Reaction Status Date / Time No Known Allergies Allergy Verified 06/29/24 10:20 Vaccinations None Consultations None Procedures Performed Operation Date: 08/25/24 07:00 Actual Procedures p Right Total Shoulder Arthroplasty(Right) - Navjot Perez MD Ordered Studies 08/25/24 05:00 US - OR guided needle placemen Routine Hospital Course (1) Status post replacement of right shoulder joint: Total Time Total Time Spent Total Time Spent (In Minutes): 5 Discharge Plan Discharge Items Patient Disposition: Home - Self-Care Reason For Visit: Right Shoulder Osteoarthritis Discharge Diagnosis: right shoulder status post shoulder replacement Condition on Discharge: Good Activity: Per Instructions section Lifting: Wait until after follow-up appointment Bathing: Keep incision dry Sexual Activity: Wait until after follow-up appointment Exercise/Sports: Wait until after follow-up appointment Driving/Machine Use: No driving until cleared by Dr. Perez Non-emergency contact: Surgeon Call non-emergency contact if: you have any medication questions, your pain is not controlled, your temperature is above 101, your wound has increased redness, your wound has increased drainage and your wound pain has increased Follow-up/Referrals: Yinka Robles PA-C [Physician Tree Driller] - 09/09/24 Mojgan Long NP [Primary Care Provider] - Diet: Heart Healthy Addtl Attending Provider Instructions: DIET: * Resume previous diet. MEDICATIONS: * Please take your prescriptions as instructed at your pre-op appointment and/or see medication discharge instructions listed above. * If concerns develop, call your physician's office at . SPECIAL CARE INSTRUCTIONS: * Ice/Elevate the shoulder frequently to reduce pain and swelling. * Keep dressing clean, dry, intact. * Your surgical extremity may be discolored due to prepping agents used on the skin. A bluish-green tint is a normal variant and should not cause alarm. Call your doctor at [phone] if: * Temperature above 101 degrees * Pain not relieved by pain medicine ordered * There is increased drainage or redness from any incision * You have any unanswered questions, problems or concerns. FOLLOW UP VISIT: * If not already scheduled, please call the office at to schedule a follow-up appointment. Continue aspirin 325 mg 2 times a day for 4 weeks to prevent clots. Take this with food. Follow-up in the office on September 09 as scheduled for staple removal Keep your sling on at all times other than therapy. Be sure to sleep in it for protection. Pending Studies at Discharge: Yes Studies:: bone pathology Stand-Alone Forms: My [facility] Medications and DC Order Prescriptions: No Action amlodipine 10 mg Tablet 10 mg PO QAM losartan 100 mg Tablet 100 mg PO QAM chlorthalidone 25 mg Tablet 12.5 mg PO QAM potassium chloride 40 mEq/15 mL liquid 40 meq PO DAILY Discharge Orders: Discharge Order (Routine); Ordered 08/26/24 Ordered By: Navjot Perez Admission Data Admit Date/Time: 08/25/24 09:44 Attending Provider: Navjot Perez Admit Provider: Navjot Perez Primary Care Provider: Mojgan Long
--- NOTE | 2024-08-25 09:36 | Operative Report ---
Post Operative Report Pre & Post Diagnosis Operation Date: 08/25/24 07:00 Pre-Op Diagnosis: Right Shoulder Osteoarthritis Post-Op Diagnosis: Right Shoulder Osteoarthritis I identified the patient and participated in the time-out.: Yes Procedure Operation Date: 08/25/24 07:00 Actual Procedures p Right Total Shoulder Arthroplasty(Right) - Navjot Perez MD Surgeon JESSICA Perez MD Special Projects Manager Nicol/Travis PAC Estimated Blood Loss 75 Findings Consistent with Post-Op Diagnosis see operative report Specimens see operative report Drains none Complications none Disposition Accompanied Patient To Recovery: Yes Indications This 69 year old male presented to the office complaints of persisting right shoulder pain. He had tried conservative care measures without improvement. He had a previous left total shoulder arthroplasty and has done very well with it. He elected to proceed with the same on the right. Preoperative imaging was obtained. Informed written consent was obtained. Description of Procedure The patient was administered a regional anesthetic and then taken to the operating room where he was given general anesthesia. He was prepped and draped in the usual sterile fashion. Please see Dr. Perez's operative report for specifics of the procedure. I was present for the entire case from initial patient positioning through final closure. Assistance was provided in tissue retraction, hemostasis, trial implant placement, final implant placement, and final wound closure. The patient was taken to the recovery room in satisfactory condition. I attest to the content of the Intraoperative Record and any orders documented therein. Any exceptions are noted below.
--- NOTE | 2024-08-25 09:38 | Operative Report ---
Post Operative Report Pre & Post Diagnosis Operation Date: 08/25/24 07:00 Pre-Op Diagnosis: Right Shoulder Osteoarthritis Post-Op Diagnosis: Right Shoulder Osteoarthritis I identified the patient and participated in the time-out.: Yes Procedure Operation Date: 08/25/24 07:00 Actual Procedures p Right Total Shoulder Arthroplasty(Right) - Navjot Perez MD Surgeon Navjot Perez MD Funeral Director Nicol/Travis Estimated Blood Loss 75 Findings Consistent with Post-Op Diagnosis Specimens Bone pathology Description of Procedure Patient was brought to the operative suite where he underwent general anesthesia. The right upper extremity was prepped and draped in the usual sterile fashion. A surgical timeout was performed. The patient went a right total shoulder arthroplasty, please see Dr. Perez's operative report for full details. I was present and assisted with patient positioning, limb positioning, soft tissue retraction, hemostasis, hardware placement, wound closure, postoperative dressing and sling placement. The patient was awakened and taken to the recovery room in stable condition. I attest to the content of the Intraoperative Record and any orders documented therein. Any exceptions are noted below.
--- NOTE | 2024-08-25 10:08 | XRay Report ---
XR shoulder RT 1V HISTORY: 69 years-old Male 0ne view only S/P R TSA right shoulder arthroplasty COMPARISON: 07/30/2024 TECHNIQUE: One view of the right shoulder FINDINGS: Satisfactory alignment of the shoulder arthroplasty with overlying skin zhane, expected soft tissue swelling with deep tissue air. IMPRESSION: Satisfactory alignment of the right shoulder arthroplasty. ACT 112: Negative or not required by law. The above report was generated using voice recognition software. It may contain grammatical, syntax o r spelling errors. Electronically signed by: Blayne Blancas M.D. 08/25/2024 10:07 AM
[2024-08-25] MEDS ORDERED: NALOXONE HCL 0.4 MG/1 ML VIAL/CARP IV PRN (11:09)
[2024-08-25] MEDS ORDERED: HYDROmorphone INJ 0.5 MG/0.5 ML SYR IV PRN (11:09)
[2024-08-25] MEDS ORDERED: ALUMINUM/MAGNESIUM SUSP 30 ML UDC PO PRN (11:09)
[2024-08-25] MEDS ORDERED: TAMSULOSIN HCL 0.4 MG CAP PO PRN (11:09)
[2024-08-25] MEDS ORDERED: VANCOMYCIN CONSULT ACTIVE PRN (11:09)
[2024-08-25] MEDS ORDERED: bisacodyL 10 MG SUPP PR PRN (11:09)
[2024-08-25] MEDS ORDERED: METOCLOPRAMIDE HCL INJ 5 MG/ML 2 ML VIAL IV PRN (11:09)
[2024-08-25] MEDS ORDERED: diphenhydrAMINE 50 MG/ML VIAL IV PRN (11:09)
[2024-08-25] MEDS ORDERED: oxyCODONE HCL IR 5 MG TAB (IMMEDIATE RELEASE) PO PRN (11:09)
[2024-08-25] MEDS ORDERED: MAGNESIUM HYDROXIDE SUSP 30 ML UDC PO PRN (11:09)
--- NOTE | 2024-08-25 11:46 | Anesthesiology Progress Note ---
Date of Service August 25, 2024 Anesthesia Post Procedure Vital Signs Vital Signs: Temp Pulse Pulse Resp BP Pulse Ox O2 Del Method 08/25/24 11:30 36.4 C L 84 16 127/82 93 Room Air 08/25/24 11:11 37.1 C 86 16 130/81 93 Room Air 08/25/24 10:48 36.6 C 80 21 125/78 93 Room Air 08/25/24 10:30 82 16 116/78 95 Room Air 08/25/24 10:15 36.2 C L 79 22 127/82 95 Room Air 08/25/24 10:05 77 23 129/77 97 Room Air 08/25/24 09:55 75 24 124/77 97 Oxymask 08/25/24 09:45 83 24 131/80 99 Oxymask 08/25/24 09:36 36.0 C L 83 17 127/76 97 Oxymask 08/25/24 05:42 36.9 C 85 18 176/89 H 98 Room Air O2 Flow Rate 08/25/24 11:30 08/25/24 11:11 08/25/24 10:48 08/25/24 10:30 08/25/24 10:15 08/25/24 10:05 08/25/24 09:55 4 08/25/24 09:45 8 08/25/24 09:36 8 08/25/24 05:42 Transfer of Care Handoff Completed per policy Notes Mental Status: alert / awake / arousable Patient Amnestic to Procedure: Yes Nausea / Vomiting: adequately controlled Pain: adequately controlled Airway Patency, RR, SpO2: stable & adequate BP & HR: stable & adequate Hydration State: stable & adequate Anesthetic Complications: no major complications apparent and Pt Satisfied with anesthetic care
[2024-08-25] MEDS: VANCOMYCIN HCL 1,500 MG in SODIUM CHLORIDE 0.9% 500 ML IV ONE (11:48)
[2024-08-25] MEDS: KETOROLAC TROMETHAMINE 15 MG/ML VIAL IV SCH (11:48)
[2024-08-25] MEDS: ACETAMINOPHEN 500 MG TAB PO SCH (14:10)
--- NOTE | 2024-08-25 16:58 | Orthopedic Progress Note ---
Date of Service August 25, 2024 Assessment & Plan Admission and Anticipated Discharge Date Admission Date: August 25, 2024 Orthopedic Progress Note Postop check. Patient doing well. Denies chest pain shortness of breath fever chills nausea vomiting or headache. Vital signs are stable he is afebrile. Neurovascular check is in moving block is wearing off as excellent hand and wrist movement has deltoid firing. Wound dressing clean dry and intact. Postop x-rays look excellent. Assessment doing well status post right total shoulder placement continue care pathway. Discharge to home tomorrow a.m. if does well overnight.
[2024-08-25] MEDS: FERROUS GLUCONATE 324 MG TAB PO SCH (17:07)
[2024-08-25] MEDS: ASCORBIC ACID 500 MG TAB PO SCH (17:07)
[2024-08-25] MEDS: DOCUSATE SODIUM 100 MG CAP PO SCH (20:20)
[2024-08-25] MEDS: SENNA 8.6 MG TAB PO SCH (20:20)
[2024-08-25 23:24] VITALS: TEMP 97.9
[2024-08-26 07:05] VITALS: BP 148/82; PULSE 89; RESP 18; O2SAT 97
[2024-08-26] MEDS: dexAMETHasone 10 MG in SYRINGE 0 ML IV SCH (07:10)
[2024-08-26 07:16] LABS: Basophils # (auto) 0.03 K/uL (0.00-0.20); Basophils % (auto) 0.2 %; Eosinophils # (auto) 0.05 K/uL (0.00-0.50); Eosinophils % (auto) 0.4 %; Immature Granulocytes # (auto) 0.05 K/uL (0.01-0.20); Immature Granulocytes % (auto) 0.4 %; Lymphocytes # (auto) 1.55 K/uL (1.20-3.40); Lymphocytes % (auto) 11.3 %; Mean Corpuscular Volume 88.7 fL (80.0-100.0); Mean Platelet Volume 10.4 fL (9.4-12.4); Monocytes # (auto) 1.38 K/uL (0.11-0.59); Neutrophils # (auto) 10.69 K/uL (1.40-6.50); Neutrophils % (auto) 77.7 %; Platelet Count 229 K/uL (130-400); RDW Coefficient of Variation 12.8 % (11.5-14.5); RDW Standard Deviation 41.3 fL (36.4-46.3); Red Blood Count 4.51 M/uL (4.70-6.10); White Blood Count 13.75 K/ul (4.8-10.8)
[2024-08-26 07:36] LABS: BUN Creatinine Ratio 22.7 (10-20); Calcium 9.3 mg/dl (8.6-10.3); Creatinine Clr Calc Pharmacy 61.5 ml/min; Potassium 3.5 mmol/L (3.5-5.1)
--- NOTE | 2024-08-26 07:52 | Orthopedic Progress Note ---
Date of Service August 26, 2024 Assessment & Plan Admission and Anticipated Discharge Date Admission Date: August 25, 2024 Orthopedic Progress Note Postop day 1 status post right total shoulder replacement doing well is getting dressed. He denies chest pain shortness of breath fever chills nausea vomiting or headache. Vital signs are stable he is afebrile. Neurovascular check reveals intact median radial ulnar suprascapular axillary nerves. Wound dressing clean dry and intact. Assessment doing well discharged home today dressing change and PT office today at 1030. Do not initiate any type of external rotation forward flexion extension of the shoulder for 3 to 4 weeks. His outpatient PT should start at roughly day 25 postop.
[2024-08-26] MEDS: LOSARTAN POTASSIUM 50 MG TAB PO SCH (08:19)
[2024-08-26] MEDS: MULTIVITAMIN TAB PO SCH (08:19)
[2024-08-26] MEDS: amLODIPine BESYLATE 5 MG TAB PO SCH (08:19)
[2024-08-26] MEDS: CHLORTHALIDONE 25 MG TAB PO SCH (08:20)
[2024-08-26] MEDS: ASPIRIN 325 MG ECTAB PO SCH (08:20)
[2024-08-26] MEDS: POTASSIUM CHLORIDE 20 MEQ/15 ML UDC PO SCH (08:22)
--- NOTE | 2024-08-26 09:41 | Orthopedic Progress Note ---
Date of Service August 26, 2024 Assessment & Plan (1) Status post replacement of right shoulder joint: Plan: The patient was educated regarding today's findings. He is doing very well. He was reminded of his appointment at the office at 1030. He will be discharged here before 10. His nurse is aware. Ice and elevate the shoulder frequently to reduce pain and swelling. Use the sling at all times other than bathing. He feels comfortable doing a home exercise program for the first 2 weeks, focusing on his fingers, wrist, and elbow. He understands that there is to be no motion at the shoulder. Follow-up with me on September 09 for staple removal in the office. Call with any other concerns. Prescription for Percocet has been sent to his pharmacy. The patient states he will likely not use it. He may use Tylenol as needed for any mild discomfort. Admission and Anticipated Discharge Date Admission Date: August 25, 2024 Subjective This 69-year-old male is seen in his room this morning. He is 1 day status post right shoulder total shoulder arthroplasty. He has no complaints at this point. Denies any shoulder pain. He states he feels good. Denies any numbness or tingling in his fingers. He is scheduled for therapy at the office this morning at 1030. Denies any chest pain, shortness of breath, abdominal pain, nausea, or vomiting. No additional complaints. Review of Systems Review of Systems: Unchanged from yesterday. Physical Exam Physical Exam: General: Well-developed, well-nourished, elderly male, in no acute distress. Sitting on his bed. Alert and oriented. Skin: Warm and dry with good turgor. No rashes. Postsurgical dressing is in place on the right shoulder. It is dry. No bleeding through the dressing. Musculoskeletal: Right arm evaluation reveals intact motor function of his digits and wrist. Elbow and shoulder range of motion was not attempted. He has a good bilingual medical assistant with the right hand. Neurologic: Gross sensation is intact across each of the digits of the right hand by soft touch. Peripheral pulses of the wrist are 2+. Results & Data Vital Signs (Past 12 Hours) Vital Signs Temp Pulse Resp BP Pulse Ox O2 Del Method 08/26/24 07:02 36.6 C 89 18 148/82 H 97 Room Air 08/26/24 02:50 36.6 C 78 16 133/81 95 Nasal CPAP 08/25/24 23:18 36.6 C 67 18 125/77 95 Nasal CPAP 08/25/24 21:47 Room Air, CPAP Laboratory Results CBC obtained today shows a white count of 13.75. H&H of 14.0 and 40.0. Normal platelets of 229,000. PRP obtained this morning shows normal electrolytes. BUN of 27 with creatinine 1.19. Glucose this morning was 132.
== END 2024-08-26 10:12 | disposition home or self-care (01) ==
LOC: ASU 05:00 → 3W 05:00